=== PATIENT | female | born 1970 | race Caucasian/White ===

== ENCOUNTER 2018-02-19 12:11 | Emergency (ER) | payer MEDICAID ==
[~2018-02-19] VITALS: Ht 157.5 cm; Wt 62.0 kg
[2018-02-19 12:16] VITALS: BP 106/71
[2018-02-19] MEDS ORDERED: ONDANSETRON 4MG ODT PO ONE (13:00)
[2018-02-19] MEDS ORDERED: IBUPROFEN 600MG TABLET PO ONE (13:00)
[2018-02-19 13:18] LABS: CLARITY URINE CLEAR (CLEAR); COLOR URINE YELLOW (YELLOW); KETONES URINE NEGATIVE (NEGATIVE); LEUKOCYTE ESTERASE URINE NEGATIVE (NEGATIVE); NITRITE URINE NEGATIVE (NEGATIVE); OCCULT BLOOD URINE NEGATIVE (NEGATIVE); PH URINE 5.5 (4.5-8.0); PROTEIN URINE NEGATIVE (NEGATIVE); SPECIFIC GRAVITY URINE 1.024 (1.005-1.030); UROBILINOGEN URINE 0.2 E.U./dL (0.2-1.0)
== END 2018-02-19 16:28 | disposition home or self-care (01) ==
LOC: ER 12:11
DX: M54.5 Low back pain (principal); E11.9 Type 2 diabetes mellitus without complications
CPT/HCPCS: 81003; 81025; 99283; Q0162